=== PATIENT | female | born 1945 | race Caucasian/White ===

== ENCOUNTER 2016-11-05 10:18 | Outpatient (CLI) | payer MEDICARE ==
[2016-11-05 11:04] LABS: Hemoglobin A1c 8.7 % (4.0-6.0)
[2016-11-05 11:46] LABS: ALT (SGPT) 27 U/L (0-55); AST (SGOT) 22 U/L (5-34); Albumin 4.3 g/dL (3.4-4.8); Alkaline Phosphatase 49 U/L (40-150); Anion Gap 18 mmol/L (10-20); BUN (Urea Nitrogen) 14 mg/dL (9.8-20.1); Bilirubin, Total 0.6 mg/dL (0.2-1.2); Calc. Creatinine Clearance 0 mL/min (70-130); Calcium 9.8 mg/dL (7.8-10.44); Carbon Dioxide 29 mmol/L (23-31); Chloride 102 mmol/L (98-107); Estimated GFR-MDRD 65; Globulin 2.3 g/dL (2.4-3.5); Glucose 112 mg/dL (83-110); Protein, Total 6.6 g/dL (5.8-8.1); Sodium 145 mmol/L (136-145)
[2016-11-05 17:18] LABS: Creatinine, Urine 171.97 mg/dL (47-110); Microalbumin Urine 2.8 mg/dL (0.5-50.0); Microalbumin/Creat Ratio 16.3 mg/g (Less than 30)
== END 2016-11-05 10:19 | disposition home or self-care (01) ==
LOC: MADLABBHPM 10:18
PROVIDERS: ATTEND Family Medicine
DX: E11.65 Type 2 diabetes mellitus with hyperglycemia (principal)
CPT/HCPCS: 36415; 80053; 82043; 83036

== ENCOUNTER 2017-02-04 10:36 | Outpatient (CLI) | payer MEDICARE ==
[2017-02-04 11:24] LABS: Hemoglobin A1c 8.4 % (4.0-6.0)
[2017-02-04 17:16] LABS: Creatinine, Urine 101.07 mg/dL (47-110); Microalbumin Urine 1.2 mg/dL (0.5-50.0); Microalbumin/Creat Ratio 11.9 mg/g (Less than 30)
== END 2017-02-04 10:37 | disposition home or self-care (01) ==
LOC: MADLABBHPM 10:36
PROVIDERS: ATTEND Family Medicine
DX: E06.9 Thyroiditis, unspecified (principal); E11.65 Type 2 diabetes mellitus with hyperglycemia
CPT/HCPCS: 36415; 82043; 83036; 84443

== ENCOUNTER 2017-05-09 09:04 | Outpatient (CLI) | payer MEDICARE ==
[2017-05-09 09:48] LABS: Hemoglobin A1c 9.7 % (4.0-6.0)
[2017-05-09 10:34] LABS: ALT (SGPT) 19 U/L (8-55); AST (SGOT) 14 U/L (5-34); Albumin 4.2 g/dL (3.4-4.8); Alkaline Phosphatase 52 U/L (40-150); Anion Gap 14 mmol/L (10-20); BUN (Urea Nitrogen) 19 mg/dL (9.8-20.1); Bilirubin, Total 0.5 mg/dL (0.2-1.2); Calc. Creatinine Clearance 0 mL/min (70-130); Calcium 8.7 mg/dL (7.8-10.44); Carbon Dioxide 27 mmol/L (23-31); Cardiac Risk 4.2 (Less than 4.5); Chloride 102 mmol/L (98-107); Cholesterol 151 mg/dl (< 200 Desired); Estimated GFR-MDRD 60; Globulin 2.7 g/dL (2.4-3.5); Glucose 244 mg/dL (83-110); HDL Cholesterol 36 mg/dL (>60 Neg Risk); LDL Cholesterol, Calculated 81 mg/dL; Potassium 4.3 mmol/L (3.5-5.1); Protein, Total 6.9 g/dL (6.0-8.3); Sodium 139 mmol/L (136-145); Triglycerides 171 mg/dL (Less than 150)
== END 2017-05-09 09:05 | disposition home or self-care (01) ==
LOC: MADLABBHPM 09:04
PROVIDERS: ATTEND Family Medicine
DX: E11.65 Type 2 diabetes mellitus with hyperglycemia (principal); E78.2 Mixed hyperlipidemia; E03.9 Hypothyroidism, unspecified
CPT/HCPCS: 36415; 80053; 80061; 83036; 84443

== ENCOUNTER 2017-06-02 14:14 | Outpatient (CLI) | payer MEDICARE ==
--- NOTE | 2017-06-02 15:38 | RAD ---
TWO VIEWS OF THE CHEST: COMPARISON: 08/29/13. HISTORY: Persistent cough. FINDINGS: Two views of the chest show normal sized cardiomediastinal silhouette. There is no evidence of conso lidation, mass, or pleural effusion. The bones are unremarkable. IMPRESSION: No evidence of acute cardiopulmonary disease. POS: [facility]
--- NOTE | 2017-06-02 15:38 | RAD ---
AP AND OBLIQUE VIEWS RIGHT RIBS 06/02/17 HISTORY: Right rib pain. AP and oblique views right ribs obtained. No evidence of right rib fractures, subluxations or bony l esions. IMPRESSION: AP and oblique views right ribs. POS: [facility]
== END 2017-06-02 14:15 | disposition home or self-care (01) ==
LOC: MADRAD 14:14
PROVIDERS: ATTEND Family Medicine
DX: R07.81 Pleurodynia (principal); R05 Cough
CPT/HCPCS: 71020

== ENCOUNTER 2018-04-28 12:45 | Outpatient (CLI) | payer MEDICARE ==
[~2018-04-28 12:45] MED LIST: Iopamidol 370 76% 100 ML VIAL ONE
--- NOTE | 2018-04-28 16:03 | CT ---
CT ABDOMEN AND PELVIS WITH IV AND ORAL CONTRAST: HISTORY: Left lower quadrant pain. COMPARISON: 10/31/2013 FINDINGS: The lung bases are clear. The gallbladder is surgically absent. Cysts of the right kidney have enla rged slightly. Prominent calcification throughout the arterial structures. Retroaortic left renal vein. Large dive rticulum projects severely from the third portion duodenum. Extensive diverticula arise from the colon. There is very subtle stranding in the fat surrounding th e upper sigmoid colon without focal diverticular inflammation evident. No free fluid or free air. IMPRESSION: 1. Extensive diverticulosis. 2. Very subtle fat inflammation of the left lower quadrant may reflect mild or resolving noncomplica derek diverticulitis. 3. Prominent atherosclerosis. 4. Chronic type findings are stable. POS: [facility]
== END 2018-04-28 12:46 | disposition home or self-care (01) ==
LOC: MADCT 12:45
PROVIDERS: ATTEND Physician Assistant Medical
DX: R10.84 Generalized abdominal pain (principal); R14.0 Abdominal distension (gaseous); R19.8 Other specified symptoms and signs involving the digestive system and abdomen; K57.30 Diverticulosis of large intestine without perforation or abscess without bleeding; I70.90 Unspecified atherosclerosis; N28.1 Cyst of kidney, acquired; Z90.49 Acquired absence of other specified parts of digestive tract
CPT/HCPCS: 74177

== ENCOUNTER 2021-12-14 10:56 | Outpatient (CLI) | payer MEDICARE ==
[2021-12-14 11:11] LABS: Bilirubin Negative (Negative); Blood, Urine Trace (Negative); Glucose, Urine (Dipstick) Negative (Negative); Ketone, Urine Negative (Negative); Leukocyte Moderate (Negative); Nitrite Negative (Negative); Protein, Urine (Dipstick) Negative (Neg-Trace)
[2021-12-14 11:12] LABS: Clarity Hazy (Clear)
[2021-12-14 11:27] LABS: Bacteria/HPF 3+ HPF (None Seen); WBC/HPF 21-50 HPF (0-3)
[2021-12-14 11:44] LABS: Thyroid Stimulating Hormone 8.7583 uIU/mL (0.35-4.94)
[2021-12-14 16:31] LABS: Free T4 (Free Thyroxine) 1.11 ng/dL (0.70-1.48)
== END 2021-12-14 10:57 | disposition home or self-care (01) ==
LOC: MADLAB 10:56
PROVIDERS: ATTEND Family Medicine
DX: R30.0 Dysuria (principal); E03.9 Hypothyroidism, unspecified
CPT/HCPCS: 36415; 81001; 84439; 84443; 84481; 87086

== ENCOUNTER 2022-03-10 11:23 | Outpatient (CLI) | payer MEDICARE | END 2022-03-10 11:24 | disposition home or self-care (01) | LOC: MADLAB 11:23 → MADRAD 11:24 | PROVIDERS: ATTEND Family Medicine | DX: R07.81 Pleurodynia (principal) ==